=== PATIENT | female | born 1995 | race Caucasian/White ===

== ENCOUNTER → 2024-05-19 15:31 | Outpatient (REF) | payer BC, SELFPAY | LOC: PNTC 15:31 | PROVIDERS: ATTENDING PHYSICIAN Obstetrics & Gynecology | DX: Z36.0 Encounter for antenatal screening for chromosomal anomalies (principal); Z36.82 Encounter for antenatal screening for nuchal translucency; O34.219 Maternal care for unspecified type scar from previous cesarean delivery | CPT/HCPCS: 76801; 76813 ==

== ENCOUNTER → 2024-07-15 15:12 | Outpatient (REF) | payer BC, SELFPAY | LOC: PNTC 15:12 | PROVIDERS: ATTENDING PHYSICIAN Obstetrics & Gynecology | DX: O34.219 Maternal care for unspecified type scar from previous cesarean delivery (principal); O28.3 Abnormal ultrasonic finding on antenatal screening of mother | CPT/HCPCS: 76811 ==

== ENCOUNTER 2024-10-25 13:02 | Observation (INO) | payer BC, SELFPAY ==
[2024-10-25 13:27] VITALS: BP 119/58; BMI 29.5
[2024-10-25] MEDS: LR 1000 IV (14:00)
[2024-10-25] MEDS: TAMIFLU 75 MG PO (14:54)
== END 2024-10-25 15:30 | disposition home or self-care (01) ==
LOC: LDRP 13:02
PROVIDERS: ADMITTING PHYSICIAN Obstetrics & Gynecology; FAMILY PHYSICIAN Nurse Practitioner Adult Health
DX: O36.8130 Decreased fetal movements, third trimester, not applicable or unspecified (principal); J10.1 Influenza due to other identified influenza virus with other respiratory manifestations; Z3A.35 35 weeks gestation of pregnancy; Z88.1 Allergy status to other antibiotic agents; Z88.3 Allergy status to other anti-infective agents; Z88.5 Allergy status to narcotic agent; Z88.0 Allergy status to penicillin; Z88.2 Allergy status to sulfonamides; Z88.8 Allergy status to other drugs, medicaments and biological substances
CPT/HCPCS: 59025; G0378

== ENCOUNTER 2024-11-18 08:47 | Inpatient (IN) | payer BC, SELFPAY ==
[2024-11-18 08:50] VITALS: BP 123/85; BMI 30.2
[2024-11-18] MEDS: LR 1000 IV (09:40)
[2024-11-18] MEDS: BICITRA 30 ML PO (09:40)
[2024-11-18] MEDS: TYLENOL 1000 MG PO (09:40)
[2024-11-18 10:01] LABS: Hematocrit 32.2 % (37.0-47.0); Hemoglobin 10.4 g/dL (12.0-16.0); Mean Corp Hgb Conc. 32.3 g/dL (33.0-37.0); Mean Corpuscular Hgb 25.2 pg (27.0-31.0); Mean Platelet Volume 11.5 fL (7.4-10.4); Platelet Count 254 10^3/uL (130-400); Red Blood Cell Count 4.13 10^6/uL (4.20-5.40); Red Cell Dist. Width 13.2 % (11.5-14.5); White Blood Cell Count 10.5 10^3/uL (4.8-10.8)
[2024-11-18] MEDS: GENTAMICIN 59.25 MG IV (12:45)
[2024-11-18] MEDS: VANCOCIN 200 IV (12:45)
[2024-11-18] MEDS: TORADOL 15 MG IV (20:08)
[2024-11-19] MEDS: TORADOL 15 MG IV ×3 (02:04→15:00)
[2024-11-19] MEDS: MYLICON 80 MG PO ×2 (02:10→15:34)
[2024-11-19 04:29] LABS: % Basophils 0.1 % (0-2); % Eosinophils 0.1 % (0-6); % Immature Granulocytes 0.4 % (0-0.5); % Lymphocytes 8.8 % (20.5-51.1); % Monocytes 7.6 % (1.7-9.3); Absolute Immature Granulocytes 0.1 10^3/uL (0-0.05); Absolute Lymphocytes 1.5 10^3/uL (1.2-3.4); Absolute Monocytes 1.3 10^3/uL (0.1-0.6); Absolute Neutrophils 13.8 10^3/uL (1.4-6.5); Hematocrit 28.8 % (37.0-47.0); Hemoglobin 9.5 g/dL (12.0-16.0); Mean Corpuscular Hgb 25.7 pg (27.0-31.0); Mean Platelet Volume 11.6 fL (7.4-10.4); Nucleated Red Blood Cells % 0 %; Platelet Count 250 10^3/uL (130-400); Red Blood Cell Count 3.69 10^6/uL (4.20-5.40); Red Cell Dist. Width 13.1 % (11.5-14.5); White Blood Cell Count 16.7 10^3/uL (4.8-10.8)
[2024-11-19] MEDS: PRENATAL PLUS 1 TABLET PO (08:10)
[2024-11-19] MEDS: SENOKOT-S 1 TABLET PO (08:10)
--- NOTE | 2024-11-19 10:35 | W.PN.ANS.POP ---
Anesthesia Post Operative
- Anesthesia Post Op Note
Vital Signs Stable-See Nursing Note: Yes
Airway Patent: Yes
Adequate Pain Control: Yes
Change in Mental Status: No
Current Postoperative Nausea & Vomiting: No
Anesthesia Complications: No
General Anesthetic Recall: No
Unplanned Admission: No
Post Op Hydration Adequate: Yes
[2024-11-19] MEDS: FEOSOL 325 MG PO (15:02)
[2024-11-19] MEDS: MOTRIN 600 MG PO (21:04)
[2024-11-19] MEDS: TYLENOL 650 MG PO (21:04)
[2024-11-20] MEDS: TYLENOL 650 MG PO ×3 (06:22→21:17)
[2024-11-20] MEDS: MOTRIN 600 MG PO ×3 (06:22→21:15)
[2024-11-20] MEDS: SENOKOT-S 1 TABLET PO (08:12)
[2024-11-20] MEDS: FEOSOL 325 MG PO (08:12)
[2024-11-20] MEDS: PRENATAL PLUS 1 TABLET PO (08:14)
[2024-11-21] MEDS: TYLENOL 650 MG PO (04:07)
[2024-11-21] MEDS: MOTRIN 600 MG PO (04:07)
[2024-11-21] MEDS: PRENATAL PLUS 1 TABLET PO (08:12)
[2024-11-21] MEDS: SENOKOT-S 1 TABLET PO (08:12)
[2024-11-21] MEDS: FEOSOL 325 MG PO (08:13)
[2024-11-21 10:53] LABS: Syphilis/T. pallidum Ab Reflex Negative (Negative)
== END 2024-11-21 11:52 | disposition home or self-care (01) | DRG 788 ==
LOC: LDRP 08:47
PROVIDERS: ADMITTING PHYSICIAN Obstetrics & Gynecology
PROC: 10D00Z1 Extraction of Products of Conception, Low, Open Approach (ICD-10-PCS; 2024-11-18)
DX: O34.211 Maternal care for low transverse scar from previous cesarean delivery (principal); O69.81X0 Labor and delivery complicated by cord around neck, without compression, not applicable or unspecified; Z3A.39 39 weeks gestation of pregnancy; Z37.0 Single live birth; N85.8 Other specified noninflammatory disorders of uterus
CPT/HCPCS: 36415; 85025; 85027; 86780; 86850; 86900; 86901